=== PATIENT | female | born 1950 | race African-American/Black ===

== ENCOUNTER 2017-09-11 14:11 | Emergency (ER) | payer MEDICARE, MEDICAID ==
[~2017-09-11] VITALS: Ht 170.2 cm; Wt 54.4 kg
[2017-09-11] MEDS ORDERED: AMLODIPINE BESY10 MG PO (14:30)
[2017-09-11] MEDS ORDERED: ATORVASTATIN CA40 MG PO (14:30)
[2017-09-11] MEDS ORDERED: CHLORTHALIDONE25 MG PO (14:31)
[2017-09-11] MEDS ORDERED: HYDRALAZINE 2525 MG PO (14:31)
[2017-09-11] MEDS ORDERED: COREG25 MG PO (14:31)
[2017-09-11] MEDS ORDERED: ASPIRIN81 M2 PO (14:32)
[2017-09-11 14:45] LABS: HEMATOCRIT 36.5 % (37.0-47.0); HEMOGLOBIN 12.2 gm/dL (12.0-15.0); MCH 28.4 pg (26.0-34.0); MCHC 33.4 g/dL (28.0-37.0); MPV 9.5 fl. (7.2-11.1); NUCLEATED RBCS 0 /100WBC; PLATELET COUNT* 245 thou/uL (150-400); RBC 4.29 mil/uL (4.20-5.00); RDW-CV 14.3 % (10.5-14.5)
[2017-09-11 14:53] LABS: CREATININE 1.9 mg/dL (0.6-1.3)
[2017-09-11 15:03] LABS: ALBUMIN 3.2 g/dL (3.4-5.0); TOTAL BILIRUBIN 1.8 mg/dL (<0.1-1.0); TOTAL PROTEIN 8.5 g/dL (6.4-8.2)
[2017-09-11 15:05] LABS: ABSOLUTE LYMPHOCYTES 1.5 thou/uL (0.8-5.3); ABSOLUTE MONOCYTES 0.7 thou/uL (0.0-1.2); ABSOLUTE NEUTROPHILS 7.8 thou/uL (1.6-8.1); PLATELET ESTIMATE ADEQUATE
[2017-09-11 15:06] LABS: POTASSIUM 2.8 mmol/L (3.5-5.1)
[2017-09-11] MEDS ORDERED: POTASSIUM20 PO (16:41)
[2017-09-11] MEDS ORDERED: MAGOX 400400 MG PO (16:44)
[2017-09-11 17:32] VITALS: BP 133/68
--- NOTE | 2017-09-12 13:02 | EKG ---
[place] [address] ELECTROCARDIOGRAM REPORT Name: RONNIEDennisCAROLINASARAHSAMI Y Room: [facility]#: [id number] Admission: 09/11/17 Attend Phys: Discharge: 09/11/17 Date of : 50 Report #: [id number] THIS REPORT FOR: //name// [facility] ED Test Date: 2017-09-11 Test Time: 14:42:26 Pat Name: SAMI GOOD Department: Room: Gender: Continuous Miner: Emelia MALDONADO : 1950 Requested By: Sylvia Vazquez Order Number: [id number] MD: Conor Toure Measurements Intervals [place] Rate: 94 P: 74 [place]: 157 QRS: 40 QRSD: 78 T: 84 QT: 381 QTc: 477 Interpretive Statements Sinus rhythm Probable left atrial enlargement Borderline prolonged QT interval No previous ECG available for comparison Electronically Signed On 09-12-2017 13:02:10 CDT by Conor Toure [email or web address] <ELECTRONICALLY SIGNED> By: Conor Toure MD, [facility] 09/12/17 1302 1442 144 Conor Toure MD, FACC /EPI
== END 2017-09-11 17:33 | disposition home or self-care (01) ==
LOC: M.ERS 14:11
PROVIDERS: Nurse Practitioner Family
DX: R53.1 Weakness (principal); E87.6 Hypokalemia; E83.42 Hypomagnesemia; Z90.710 Acquired absence of both cervix and uterus

== ENCOUNTER → 2017-11-04 | Outpatient (CLI) | payer MEDICARE, MEDICAID ==
[~2017-11-04] MED LIST: AMLODIPINE BESY10 MG PO; ASPIRIN81 M2 PO; ATORVASTATIN CA40 MG PO; CHLORTHALIDONE25 MG PO; COREG25 MG PO; HYDRALAZINE 2525 MG PO; MAGOX 400400 MG PO; POTASSIUM20 PO
--- NOTE | 2017-11-04 16:32 | EXE ---
[place] [address] STRESS ECHOCARDIOGRAM Name: JASONELISAJillianSAMI Christopher Room: [facility]#: [id number] Admission: 11/04/17 Attend Phys: Aleksandr Bhavin, Discharge: Date of : 50 Date of Service: 11/04/17 1632 Report #: [id number] THIS REPORT FOR: //name// APPROVED REPORT Study performed: 11/04/2017 11:30:17 Exam: Stress Echocardiogram Indication: Syncope Patient Location: Out-Patient Stress Nurse: Blanca Orlando RN Supervising Physician: Lucio Rogers MD Status: routine Ht: 5 ft 7 in HR: 73 bpm BP: 131/71 mmHg Medical History Cardiac Risk Factors: Tobacco History (Former), Hyperlipidemia, HTN Procedure The patient underwent an Exercise Stress Test using the Jn Protocol. Blood pressure, heart rate, and EKG were monitored. An Echocardiogram was performed by parts identification technician in four stages in quad fashion. At peak stress, four selected images were obtained and placed side by side with resting images for comparison. Stress Test Details Stress Test: Exercise stress testing was performed using a Jn protocol. HR Resting HR: 73 bpm Max Heart Rate (APMHR): 153 bpm Max HR Achieved: 122 bpm Target HR (85% APMHR): 130 bpm % of APMHR: 79 Recovery HR: 75 bpm HR response to stress: Normal HR response to stress BP Resting BP: 131/71 mmHg Max BP: 212/91 mmHg Recovery BP: 170/79 mmHg ECG Resting ECG: Sinus Rhythm, [place] [address] STRESS ECHOCARDIOGRAM Name: SAMI GOOD Room: [facility]#: [id number] Admission: 11/04/17 Attend Phys: Aleksandr Delcid, Discharge: Date of : 50 Date of Service: 11/04/17 1632 Report #: [id number] Stress ECG: Sinus Tachycardia ST Change: None Arrhythmia: None Recovery ECG: Sinus Rhythm Recovery ST Change: None Recovery Arrhythmia: None Clinical Reason for Termination: Leg fatigue Exercise duration: 2 min 13 sec Highest Stage Achieved: Stage 1: 1.7 mph at 10% grade. Exercise capacity: 4.64 METs The patient exhibited poor exercise tolerance. She denies any significant chest pain. Stress ECG Conclusion The baseline 12-lead EKG shows sinus rhythm thousand Mr. T wave abnormality. EKGs obtained during and post exercise stress show sinus rhythm and sinus tachycardia with no significant ST or T wave changes when compared to baseline. There were no stress-induced arrhythmias. Pre-Stress Echo The resting Echocardiogram showed normal left ventricular contractility with an estimated Ejection Fraction of about 55-60%. Post-Stress Echo The stress Echocardiogram showed normal left ventricular contractility with an estimated Ejection Fraction of about >70%. Clinical No clinical or ECG evidence for ischemia. Conclusion Clinical Response: Equivocal Exercise Capacity: Below Average Stress ECG Response: Non-ischemic Stress Echo Images: Non-ischemic The patient exhibited no echo or EKG evidence of ischemia at the level of stress achieved. She exhibited fairly poor exercise tolerance and was only on the treadmill for 2 minutes and 13 seconds. Would consider repeat stress testing with nonexercise stress modality if clinically indicated. Other Information Study Quality: [place] [address] STRESS ECHOCARDIOGRAM Name: SAMI GOOD Room: [facility]#: [id number] Admission: 11/04/17 Attend Phys: Aleksandr Mejiaise, Discharge: Date of : 50 Date of Service: 11/04/171631 Report #: [id number] <Conclusion> The patient exhibited no echo or EKG evidence of ischemia at the level of stress achieved. She exhibited fairly poor exercise tolerance and was only on the treadmill for 2 minutes and 13 seconds. Would consider repeat stress testing with nonexercise stress modality if clinically indicated. <ELECTRONICALLY SIGNED> By: Lucio Rogers MD, [facility] 11/04/171631 31 1632 Lucio Rogers MD, FACC /INF
--- NOTE | 2017-11-05 08:43 | TST ---
[place] [address] TREADMILL STRESS TEST Name: SAMI GOOD Room: [facility]#: [id number] Admission: 11/04/17 Attend Phys: Aleksandr Delcid, Discharge: Date of : 50 Date of Service: 11/04/17 1628 Report #: [id number] THIS REPORT FOR: //name// CC: Aleksandr Delcid Diabetic nurse practitioner TYPE OF REPORT: Standard Jn protocol exercise stress test. INDICATION: Syncope. CARDIAC RISK FACTORS: Age greater than 55, hyperlipidemia, hypertension and tobacco use remotely. CARDIAC MEDICATIONS: Carvedilol, atorvastatin, potassium supplement, amlodipine, chlorthalidone, aspirin and hydralazine. DESCRIPTION OF PROCEDURE: The patient exercised for 2 minutes and 14 seconds on the standard Jn protocol. The resting heart rate was 73 beats per minute with a resting blood pressure 131/71 mmHg. At peak stress, the heart rate was 122 beats per minute with a peak stress, heart rate of 212/91 mmHg. In recovery, the heart rate was 75 beats per minute with a recovery blood pressure 170/79 mmHg. The patient achieved 95% of age predicted maximum heart rate and an energy expenditure equivalent to 4.64 METs. The patient exhibited a hypertensive response to exercise. The patient exhibited poor exercise tolerance. The patient denied any significant chest discomfort with exercise. Exercise was stopped due to leg pain. The baseline 12-lead EKG showed sinus rhythm without significant ST or T-wave abnormality. EKGs obtained during and post-exercise shows sinus rhythm and sinus tachycardia with no significant ST or T-wave changes when compared to baseline. There were no significant stress-induced arrhythmias. IMPRESSION: 1. Clinical response nondiagnostic due to poor exercise tolerance. 2. EKG response: Nonischemic. CONCLUSION: The standard Jn protocol exercise stress test shows no evidence of stress-induced ischemia at the level of stress achieved. [place] [address] TREADMILL STRESS TEST Name: SAMI GOOD Room: [facility]#: [id number] Admission: 11/04/17 Attend Phys: Aleksandr Delcid, Discharge: Date of : 50 Date of Service: 11/04/171627 Report #: [id number] exhibit fairly poor exercise tolerance. Consider repeat stress testing with non-exercise stress modality and alternate imaging if clinically indicated. <ELECTRONICALLY SIGNED> By: Lucio Rogers MD, FACC 11/05/17 0843 1628 0257 Lucio Rogers MD, FACC /nt
--- NOTE | 2017-11-05 08:43 | TST ---
[place] [address] TREADMILL STRESS TEST Name: SAMI GOOD Room: [facility]#: [id number] Admission: 11/04/17 Attend Phys: Aleksandr Delcid, Discharge: Date of : 50 Date of Service: 11/04/17 1629 Report #: [id number] THIS REPORT FOR: //name// CC: Aleksandr Delcid DATE OF SERVICE: 11/04/2017 Please delete dictation, report #[id number]. <ELECTRONICALLY SIGNED> By: Lucio Rogers MD, FACSae 11/05/17 0843 1629 0239 Lucio Rogers MD, FACC /nt
== END ==
LOC: M.CRD 10-23 11:00
DX: R55 Syncope and collapse (principal); R53.83 Other fatigue

== ENCOUNTER → 2018-02-19 | Outpatient (CLI) | payer MEDICARE, MEDICAID ==
[2018-02-19 10:31] LABS: PROTIME 9.9 Seconds (9.20-11.50)
[2018-02-19 10:35] LABS: CHOLESTEROL 227 mg/dL (<200); HDL CHOLESTEROL 93 mg/dL (>40); LDL CHOLESTEROL 120 mg/dL (<100); TC:HDL 2.4 Ratio (Not establshd); TRIGLYCERIDE 71 mg/dL (<150); VLDL 14 mg/dL (<40)
[2018-02-19 11:10] LABS: SERUM ASSESSMENT Clear
[2018-02-19 19:08] LABS: IgG 1479 mg/dL (700-1600); IgM 52 mg/dL (26-217)
[2018-02-19 21:10] LABS: GLYCOHEMOGLOBIN (HGB A1C) 5.1 % (4.8-5.6)
[2018-02-20 14:10] LABS: CERULOPLASMIN 30.2 mg/dL (19.0-39.0)
[2018-02-23 11:11] LABS: ANTI-DNA SCREEN <1 IU/mL (0-9); ANTI-RNP <0.2 AI (0.0-0.9)
[2018-02-27 14:07] LABS: ANA INTERPRETATION Negative (Negative)
== END ==
LOC: M.ULTRA 09:17
PROVIDERS: Internal Medicine Gastroenterology
DX: R10.9 Unspecified abdominal pain (principal); R94.5 Abnormal results of liver function studies; I12.9 Hypertensive chronic kidney disease with stage 1 through stage 4 chronic kidney disease, or unspecified chronic kidney disease; N18.9 Chronic kidney disease, unspecified; Z90.710 Acquired absence of both cervix and uterus

== ENCOUNTER → 2018-03-10 | Outpatient (CLI) | payer MEDICARE, MEDICAID ==
[2018-03-10 10:27] LABS: ALBUMIN 3.5 g/dL (3.4-5.0); DIRECT BILIRUBIN 0.2 mg/dL (<0.1-0.3); TOTAL BILIRUBIN 0.8 mg/dL (<0.1-1.0); TOTAL PROTEIN 7.9 g/dL (6.4-8.2)
== END ==
LOC: M.LAB 09:46
PROVIDERS: Physician Assistant
DX: R94.5 Abnormal results of liver function studies (principal)

== ENCOUNTER → 2018-04-02 | Outpatient (CLI) | payer MEDICARE, MEDICAID | LOC: M.ULTRA 11:00 | DX: I12.9 Hypertensive chronic kidney disease with stage 1 through stage 4 chronic kidney disease, or unspecified chronic kidney disease (principal); N18.3 Chronic kidney disease, stage 3 (moderate) ==